=== PATIENT | male | born 1960 | race Two or more races ===

== ENCOUNTER 2018-03-31 11:16 | Emergency (ER) | payer OTHER ==
[~2018-03-31] VITALS: Ht 167.6 cm; Wt 84.4 kg
[2018-03-31] MEDS ORDERED: ONDANSETRON HCL/PF 4 MG/2 ML VIAL ONE (11:57)
[2018-03-31] MEDS ORDERED: ONDANSETRON HCL/PF 4 MG/2 ML VIAL IVP ONE (12:00)
[2018-03-31] MEDS ORDERED: IV NS 0.9% 1,000 ML BAG IV ONE (12:00)
[2018-03-31 12:10] LABS: WHITE BLOOD COUNT (AUTO) 5.3 K/uL (4.3-11.0)
[2018-03-31 12:11] LABS: BASOPHILS % (AUTO) 0.3 % (0.0-2.0); HEMATOCRIT 47 % (39-51); LYMPHOCYTES # (AUTO) 0.8 /CMM (0.8-4.8); LYMPHOCYTES % (AUTO) 15.7 % (20.0-44.0); MEAN CORPUSCULAR HGB CONC 36 g/dl (31.0-36.0); MEAN CORPUSCULAR VOLUME 94 fL (80-96); MONOCYTES # (AUTO) 0.5 /CMM (0.1-1.30); PLATELET COUNT (AUTO) 187 /CMM (150-450)
[2018-03-31 12:12] LABS: BASOPHILS # (AUTO) 0.3 /CMM (0.0-0.2)
[2018-03-31 12:15] LABS: CALCIUM, SERUM 8.5 mg/dL (8.5-10.1); CREATININE 0.8 mg/dL (0.6-1.3); POTASSIUM 3.4 mmol/L (3.5-5.1)
--- NOTE | 2018-03-31 12:16 | NUR ---
58 Y/O MALE PLACED IN BED 12 C/O NAUSEA AND VOMITING. PT STATED THAT HE VOMITED VERY HARD AND SOME RED BLOOD CAME UP WITH THE VOMIT. PT SEEN BY . Vicente/Dameon PLACED RIGHT A/C. IVF RUNNING. ZOFRAN GIVEN. BLOOD DRAWN AND SENT.
[2018-03-31 12:20] LABS: BILIRUBIN,DIRECT 0.2 mg/dL (0.0-0.2); BILIRUBIN,TOTAL 0.6 mg/dL (0.2-1.0); TOTAL PROTEIN, SERUM 7.5 g/dL (6.4-8.2)
[2018-03-31 12:50] VITALS: BP 150/100
--- NOTE | 2018-03-31 12:50 | NUR ---
Patient discharged to home in stable condition. Written and verbal after care instructions given. Patient verbalizes understanding of instruction. IV removed. Catheter intact and site benign. Pressure and 4x4 applied to site. No bleeding noted.
== END 2018-03-31 12:50 | disposition home or self-care (01) ==
LOC: ER 11:21
DX: K92.0 Hematemesis (principal); I10 Essential (primary) hypertension; E86.0 Dehydration; F10.10 Alcohol abuse, uncomplicated; Y90.9 Presence of alcohol in blood, level not specified; Z88.5 Allergy status to narcotic agent
CPT/HCPCS: 36415; 80048; 80076; 83690; 85025; 85730; 96361; 96374; 99284; A4606; J2405; J7030; Z7610